=== PATIENT | female | born 1980 | race Caucasian/White ===

== ENCOUNTER 2021-04-14 12:07 | Emergency (ER) | payer MEDICARE, OTHER ==
--- NOTE | 2021-04-14 13:14 | EDM.PDOC ---
ED HPI GENERAL MEDICAL PROBLEM - General Chief Complaint: Abdominal Pain Stated Complaint: SERVE ABDOMINAL PAIN Time Seen by Provider: 04/14/21 12:55 Source of Information: Reports: Patient History Limitations: Reports: No Limitations - History of Present Illness INITIAL COMMENTS - FREE TEXT/NARRATIVE: This is a 41 year old female presenting with epigastric abdominal pain. Patient reports she first developed some epigastric discomfort about one week ago that felt like gas. She reports that she recently started seeing a research assistant professor and trying to eat better foods and thought that was the cause of the discomfort and gas initially. However, 2 days ago she developed worsening epigastric abdominal pain that feels like Twisting and a knot in her stomach. the pain radiates to her back. the pain comes on about 30 minutes after eating. It doesn't matter what she eats. Today she had a fruit smoothie and egg whites and the pain came on shortly after. Some associated nausea, but no vomiting. She does admit to several episodes of watery diarrhea associated with these episodes of pain. No fever or chills. No associated urinary symptoms. she was seen in walk-in clinic yesterday and had labs and a CT of her abdomen that was normal. They diagnosed her with gastritis and started her on medications for that. Abdominal Pain Score (Numeric/FACES): 8 - Related Data Allergies Allergy/AdvReac Type Severity Reaction Status Date / Time No Known Allergies Allergy Verified 04/14/21 12:49 Home Meds: Home Meds Dabigatran [Pradaxa] 150 mg PO BID 04/14/21 [History] Famotidine 40 mg PO BID 04/14/21 [History] Pantoprazole Sodium [Protonix] 40 mg PO DAILY 04/14/21 [History] Past Medical History Cardiovascular History: Reports: None Respiratory History: Reports: None Gastrointestinal History: Reports: None CERTIFIED SURGICAL ASSISTANT History: Reports: Musculoskeletal History: Reports: None Neurological History: Reports: None Psychiatric History: Reports: None Endocrine/Metabolic History: Reports: Obesity/BMI 30+ Hematologic History: Reports: Other (See Below) Other Hematologic History: protein s deficiencys Oncologic (Cancer) History: Reports: None Dermatologic History: Reports: None - Infectious Disease History Infectious Disease History: Reports: Chicken Pox, Novel Coronavirus - Past Surgical History HEENT Surgical History: Reports: Tonsillectomy Female Surgical History: Reports: Section Social & Family History - Tobacco Use Tobacco Use Status *Q: Never Tobacco User - Caffeine Use Caffeine Use: Reports: Coffee - Recreational Drug Use Recreational Drug Use: No ED ROS GENERAL - Review of Systems Review Of Systems: Comprehensive ROS is negative, except as noted in HPI. ED EXAM, GI/ABD - Physical Exam Exam: See Below Exam Limited By: No Limitations General Appearance: Alert, No Apparent Distress Head: Atraumatic, Normocephalic Neck: Supple, Full Range of Motion Respiratory/Chest: No Respiratory Distress, Lungs Clear, Normal Breath Sounds Cardiovascular: Normal Peripheral Pulses, Regular Rate, Rhythm GI/Abdominal Exam: Soft, Tender (mild tenderness to palpation in the epigastric region without rebound or guarding). No: Distended, Guarding, Rigid, Rebound Back Exam: Normal Inspection. No: CVA Tenderness (R), CVA Tenderness (L) Extremities: Normal Inspection, Normal Range of Motion Neurological: Alert, Oriented, Normal Cognition Psychiatric: Normal Affect, Normal Mood Skin Exam: Warm, Dry. No: Jaundice Course - Vital Signs Last Recorded V/S: Last Vital Signs Temp 96.5 F L 04/14/21 12:42 Pulse 70 04/14/21 12:42 Resp 16 04/14/21 12:42 BP 133/65 04/14/21 12:42 Pulse Ox 98 04/14/21 12:42 - Orders/Labs/Meds Orders: Active Orders 24 hr Category Date Time Status Gallbladder [Abdomen Ltd] [US] Stat Exams 04/14/21 13:07 Taken Labs: Laboratory Tests 04/14/21 04/14/21 Range/Units 13:25 13:25 WBC 8.1 (4.5-11.0) K/uL RBC 5.08 (3.30-5.50) M/uL Hgb 13.3 (12.0-15.0) g/dL Hct 41.4 (36.0-48.0) % MCV 82 (80-98) fL MCH 26 L (27-31) pg MCHC 32 (32-36) % Plt Count 232 (150-400) K/uL Neut % (Auto) 52.3 (36-66) % Lymph % (Auto) 28.1 (24-44) % [place] % (Auto) 6.2 H (2-6) % Eos % (Auto) 12.2 H (2-4) % Baso % (Auto) 1.2 H (0-1) % Sodium 141 (140-148) mmol/L Potassium 4.2 (3.6-5.2) mmol/L Chloride 105 (100-108) mmol/L Carbon Dioxide 25 (21-32) mmol/L Anion Gap 11.4 (5.0-14.0) mmol/L BUN 13 (7-18) mg/dL Creatinine 0.7 (0.6-1.0) mg/dL Est Cr Clr Drug Dosing 111.65 mL/min Estimated GFR (MDRD) > 60 (>60) Glucose 98 (74-106) mg/dL Calcium 8.6 (8.5-10.1) mg/dL Total Bilirubin 0.3 (0.2-1.0) mg/dL AST 19 (15-37) U/L ALT 26 (12-78) U/L Alkaline Phosphatase 60 (46-116) U/L Total Protein 7.1 (6.4-8.2) g/dL Albumin 3.6 (3.4-5.0) g/dL Globulin 3.5 (2.3-3.5) g/dL Albumin/Globulin Ratio 1.0 L (1.2-2.2) Lipase 115 (73-393) U/L Meds: Medications Discontinued Medications Generic Name Dose Route Start Last Admin Trade Name Freq PRN Reason Stop Dose Admin Al Hydroxide/Mg Hydroxide 15 0 ml 04/14/21 14:02 04/14/21 14:34 ml/ Lidocaine HCl 15 ml PO 04/14/21 14:03 30 ml ONETIME ONE Administration Departure - Departure Time of Disposition: 15:20 Disposition: Home, Self-Care 01 Clinical Impression: Biliary colic - Discharge Information Instructions: Gastritis, Adult, [id number], Biliary Colic, Adult, Abdominal Pain, Adult, [id number] Referrals: PCP,None [Primary Care Provider] - Forms: ED Department Discharge Additional Instructions: Use tylenol as needed for pain. If pain is not controlled with tylenol, use the prescribed [place]. Be sure to not take more than 4 g of tylenol per day so avoid taking the [place] with extra doses of tylenol. Avoid greasy and fatty foods as much as possible. Follow up with your primary care provider or surgeon when you return home to be re-evaluated for possibly surgery. Sepsis Event Note (ED) - Evaluation Sepsis Screening Result: No Definite Risk - Focused Exam Vital Signs: Vital Signs Temp Pulse Resp BP Pulse Ox 04/14/21 12:42 96.5 F L 70 16 133/65 98 - Problem List Review Problem List Initiated/Reviewed/Updated: Yes - My Orders Last 24 Hours: My Active Orders 04/14/21 13:07 Gallbladder [Abdomen Ltd] [US] Stat - Assessment/Plan Last 24 Hours: My Active Orders 04/14/21 13:07 Gallbladder [Abdomen Ltd] [US] Stat Assessment:: This is a pleasant 41 year old female presenting with epigastric abdominal pain. Differential diagnosis considered includes but is not limited to biliary colic, cholecystitis, gastritis, pancreatitis, referred cardiac pain, among others. She is afebrile and well appearing here. She does have some epigastric tenderness, but no peritoneal signs on exam. Labs today were unrevealing, including no leukocytosis and normal liver function. Lipase is normal, making pancreatitis unlikely, especially in the setting of negative abdominal CT yesterday. Urinalysis was negative yesterday so i do not feel that requires repeating today. Her history if concerning for biliary colic or cholecystitis so RUQ ultrasound was obtained. This did reveal stones within the gallbladder and gallbladder wall within the upper limits of normal, but no pericholecystic fluid or other evidence of cholecystitis at this time CBD is within normal limits. I suspect that her pain is secondary to biliary colic based of history and imaging results. No evidence of acute cholecystitis at this time and there is no indication for urgent surgical evaluation. She is appropriate for discharge home with recommendations to avoid greasy/fatty foods and to follow up with a surgeon as an outpatient once she returns home. She was instructed to return to the ED for any worsening or persistent abdominal pain, fever, persistent vomiting, or other concerning symptoms as more urgent surgical evaluation may be required if she worsens.
[2021-04-14] MEDS ORDERED: Alum Hydrox/Mag Hydrox/Simeth 15 ML, Lidocaine 2% 15 ML PO ONE ×2 (14:02)
--- NOTE | 2021-04-16 09:57 | US ---
Abdomen Ltd CLINICAL HISTORY: Right upper quadrant and epigastric pain COMPARISON: CT prior day. TECHNIQUE: Real-time images were obtained through the right upper quadrant. FINDINGS: The liver is free of mass or biliary dilatation. There is a normal hepatic echotexture. The gallbladder contains multiple stones. The common bile duct measures 4 mm. The pancreas is has a normal appearance. The right kidney has a normal appearance. The IVC is normal. IMPRESSION: Cholelithiasis with no biliary dilatation
== END 2021-04-14 15:46 | disposition home or self-care (01) ==
LOC: JP.ED 12:07
DX: K80.50 Calculus of bile duct without cholangitis or cholecystitis without obstruction (principal); E66.9 Obesity, unspecified; Z68.41 Body mass index [BMI] 40.0-44.9, adult; Z79.899 Other long term (current) drug therapy
CPT/HCPCS: 36415; 76705; 80053; 83690; 85025; 99284; A9270